=== PATIENT | female | born 1990 | race Caucasian/White ===

== ENCOUNTER 2018-03-18 03:34 | Emergency (ER) | payer MEDICAID, OTHER ==
--- NOTE | 2018-03-18 04:12 | EDPHY ---
H & P Stated Complaint: right forearm lac Time Seen by Provider: 03/18/18 04:05 HPI/ROS: Chief Complaint: Right forearm laceration HPI: 27-year-old woman sustained a laceration to her right forearm on a piece of broken glass. She works at a restaurant. She is up-to-date in her tetanus. Denies other injuries. ROS: 10 point Review of Systems is negative except as noted in the HPI. PMH: Denies Social History: No smoking Family History: non-contributory Physical Exam: General: Awake, alert, no acute distress Right arm: Patient has a 1 cm laceration on the volar aspect of her right forearm. Seen is subcutaneous fat. No deep tissue involvement. She has full range of motion of all forearm flexors. No deep tissue involvement. Skin: No rash - Personal History LMP (Females 10-55): IUD In Place Current Tetanus Diphtheria and Acellular Pertussis (TDAP): Yes - Medical/Surgical History Hx Asthma: No Hx Chronic Respiratory Disease: No Hx Diabetes: No Hx Cardiac Disease: No Hx Renal Disease: No Hx Cirrhosis: No Hx Alcoholism: No Hx HIV/AIDS: No Hx Splenectomy or Spleen Trauma: No Other PMH: Patella dislocation - Social History Smoking Status: Current every day smoker Constitutional: Initial Vital Signs Temperature (C) 36.7 C 03/18/18 03:39 Heart Rate 90 03/18/18 03:39 Blood Pressure 123/90 H 03/18/18 03:39 O2 Sat (%) 97 03/18/18 03:39 O2 Delivery Mode Room Air Allergies/Adverse Reactions: acetaminophen Allergy (Unverified 03/18/18 03:39) hydrocodone Allergy (Verified 03/18/18 03:39) Medical Decision Making Procedures: Procedure: Laceration repair. Verbal consent was obtained from the patient. The 1 cm laceration on the right forearm was anesthetized in the usual fashion. The wound was irrigated, draped and explored to its base with a gloved finger. There were no deep structures involved. No tendon injury was identified. The wound was repaired with 3, 5-0 Ethilon simple interrupted sutures. The wound repair was uncomplicated. The procedure was performed by myself. Departure - Departure Disposition: Home, Routine, Self-Care Clinical Impression: Laceration Condition: Good Instructions: Care For Your Stitches (ED), Laceration (ED) Additional Instructions: Sutures need to be removed in 7 days. Return to the emergency department for increasing warmth, redness, discharge from the wound, fevers, or any other concerns. Referrals: NONE *PRIMARY CARE P,. [Primary Care Provider] - As per Instructions
[2018-03-18 04:50] VITALS: BP 126/86
== END 2018-03-18 04:58 | disposition home or self-care (01) ==
PROC: 0HQDXZZ Repair Right Lower Arm Skin, External Approach (ICD-10-PCS; principal; 2018-03-18)
DX: S51.811A Laceration without foreign body of right forearm, initial encounter (principal); F17.200 Nicotine dependence, unspecified, uncomplicated; W25.XXXA Contact with sharp glass, initial encounter; Y92.511 Restaurant or cafe as the place of occurrence of the external cause; Y99.0 Civilian activity done for income or pay; Y93.89 Activity, other specified